=== PATIENT | female | born 1985 | race Caucasian/White ===

== ENCOUNTER → 2017-07-10 | Outpatient (REF) | payer BC | LOC: M SFHCLERA 09:50 | PROVIDERS: ATTEND Nurse Practitioner Family | DX: R30.0 Dysuria (principal) ==

== ENCOUNTER 2017-08-09 14:53 | Emergency (ER) | payer BC ==
[~2017-08-09] VITALS: Ht 160 cm; Wt 113.6 kg
[2017-08-09 14:54] VITALS: BP 140/86
== END 2017-08-09 15:44 | disposition left against medical advice (07) ==
LOC: M ED 14:53
DX: H93.90 Unspecified disorder of ear, unspecified ear (principal); Z53.29 Procedure and treatment not carried out because of patient's decision for other reasons

== ENCOUNTER → 2018-03-01 | Outpatient (REF) | payer BC | LOC: M SFHCLERA 12:09 | DX: L50.9 Urticaria, unspecified (principal) ==

== ENCOUNTER → 2018-04-30 | Outpatient (CLI) | payer BC ==
[2018-04-30 19:51] LABS: RHEUMATOID FACTOR QUANT < 10.0 IU/ML (<15.0)
[2018-05-01 09:07] LABS: THYROGLOBULIN ANTIBODY 34.9 U/ML (<60.0)
[2018-05-01 09:07] LABS: THYROID PEROXIDASE ANTIBODY < 28.0 U/ML (<60.0)
[2018-05-07 00:07] LABS: IGE RECEPTOR ABY 1 38.3 (<10)
== END ==
LOC: M SMT 14:02
DX: L50.1 Idiopathic urticaria (principal)
CPT/HCPCS: 86800

== ENCOUNTER → 2018-05-24 | Outpatient (CLI) | payer BC ==
[2018-05-24 17:10] LABS: ALBUMIN 3.4 GM/DL (3.2-5.2); ALKALINE PHOSPHATASE 85 U/L (45-117); ALT/SGPT 19 U/L (12-78); ANION GAP 6 MEQ/L (8-16); AST/SGOT 7 U/L (7-37); BILIRUBIN,TOTAL 0.1 MG/DL (0.2-1.0); BLOOD UREA NITROGEN 12 MG/DL (7-18); CALCIUM LEVEL 8.6 MG/DL (8.5-10.1); CARBON DIOXIDE LEVEL 28 MEQ/L (21-32); CHLORIDE LEVEL 107 MEQ/L (98-107); CREATININE FOR GFR 0.69 MG/DL (0.55-1.30); GLOMERULAR FILTRATION RATE > 60.0 (>60); GLUCOSE, FASTING 95 MG/DL (70-100); POTASSIUM SERUM 4.2 MEQ/L (3.5-5.1); SODIUM LEVEL 141 MEQ/L (136-145); TOTAL PROTEIN 6.8 GM/DL (6.4-8.2)
[2018-05-24 17:21] LABS: HEMATOCRIT 41.4 % (36.0-47.0); HEMOGLOBIN 13.1 g/dl (12.0-15.5); MEAN CORPUSCULAR HEMOGLOBIN 28.5 pg (27.0-33.0); MEAN CORPUSCULAR HGB CONC 31.6 g/dl (32.0-36.5); MEAN CORPUSCULAR VOLUME 90.2 fl (80.0-96.0); PLATELET COUNT, AUTOMATED 341 10^3/uL (150-450); RED BLOOD COUNT 4.59 10^6/uL (4.00-5.40); RED CELL DISTRIBUTION WIDTH 12.5 % (11.5-14.5); WHITE BLOOD COUNT 10.7 10^3/uL (4.0-10.0)
[2018-05-24 20:25] LABS: ERYTHROCYTE SEDIMENTATION RATE 12 mm/hr (0-20)
[2018-05-28 00:07] LABS: CYCLIC CITRULLINATED PEPTIDE 5 units (0-19)
[2018-05-28 00:07] LABS: ANTINUCLEAR ANTIBODIES DIRECT Negative (Negative)
== END ==
LOC: M SMT 12:08
DX: L50.8 Other urticaria (principal)
CPT/HCPCS: 80053

== ENCOUNTER → 2019-05-20 | Outpatient (CLI) | payer BC ==
[2019-05-20 15:44] LABS: BASO % 0.1 % (0.0-1.0); EOS # 0.4 10^3/uL (0.0-0.50); EOS % 4.3 % (0.0-3.0); HEMATOCRIT 44.9 % (36.0-47.0); HEMOGLOBIN 14.3 g/dl (12.0-15.5); LYMPH # 3.4 10^3/uL (1.5-4.5); LYMPH % 34.2 % (24.0-44.0); MEAN CORPUSCULAR HEMOGLOBIN 28.5 pg (27.0-33.0); MEAN CORPUSCULAR HGB CONC 31.8 g/dl (32.0-36.5); MEAN CORPUSCULAR VOLUME 89.4 fl (80.0-96.0); MONO # 0.6 10^3/uL (0.0-0.8); NEUTROPHILS # 5.4 10^3/uL (1.8-7.7); NEUTROPHILS % 54.9 % (36.0-66.0); PLATELET COUNT, AUTOMATED 305 10^3/uL (150-450); RED BLOOD COUNT 5.02 10^6/uL (4.00-5.40); WHITE BLOOD COUNT 9.9 10^3/uL (4.0-10.0)
[2019-05-20 16:05] LABS: ERYTHROCYTE SEDIMENTATION RATE 10 mm/hr (0-20)
== END ==
LOC: M WUC 11:17
PROVIDERS: ATTEND Physician Assistant
DX: R22.31 Localized swelling, mass and lump, right upper limb (principal)

== ENCOUNTER 2023-06-05 15:36 | Emergency (ER) | payer BC, SELFPAY ==
[~2023-06-05] VITALS: Ht 160 cm; Wt 114.2 kg
[2023-06-05] MEDS ORDERED: HYDR-643 PO (15:50)
[2023-06-05] MEDS ORDERED: diphenhydrAMINE 50MG/ML VIAL IV ONE (16:05)
[2023-06-05] MEDS ORDERED: methylPREDNISolone 125MG 2ML VIAL IV ONE (16:05)
[2023-06-05 17:03] LABS: BASO # 0.1 10^3/uL (0.0-0.2); BASO % 0.4 % (0.0-1.0); EOS # 0.4 10^3/uL (0.0-0.5); EOS % 3.3 % (0.0-3.0); HEMATOCRIT 43.3 % (36.0-47.0); HEMOGLOBIN 13.9 g/dl (12.0-15.5); LYMPH % 24.4 % (24.0-44.0); MEAN CORPUSCULAR HEMOGLOBIN 29.4 pg (27.0-33.0); MEAN CORPUSCULAR HGB CONC 32.1 g/dl (32.0-36.5); MEAN CORPUSCULAR VOLUME 91.5 fl (80.0-96.0); MONO # 0.6 10^3/uL (0.0-0.8); MONO % 4.8 % (2.0-8.0); NEUTROPHILS # 8.1 10^3/uL (1.5-8.5); NEUTROPHILS % 66.3 % (36.0-66.0); PLATELET COUNT, AUTOMATED 309 10^3/uL (150-450); RED BLOOD COUNT 4.73 10^6/uL (4.00-5.40); WHITE BLOOD COUNT 12.2 10^3/uL (4.0-10.0)
[2023-06-05 17:28] LABS: ETHYL ALCOHOL (ETHANOL) < 0.003 % (0.000-0.010)
[2023-06-05 17:30] LABS: ALBUMIN 3.6 G/DL (3.2-5.2); ALKALINE PHOSPHATASE 104 U/L (46-116); ALT/SGPT 17 U/L (7.0-40); AST/SGOT < 8 U/L (<34); BILIRUBIN,DIRECT 0.1 MG/DL (<0.4); BILIRUBIN,TOTAL 0.3 MG/DL (0.3-1.2); BLOOD UREA NITROGEN 12 MG/DL (9-23); CALCIUM LEVEL 9.2 MG/DL (8.5-10.1); CARBON DIOXIDE LEVEL 24 MMOL/L (20-31); CHLORIDE LEVEL 105 MMOL/L (98-107); CREATININE FOR GFR 0.66 MG/DL (0.55-1.30); GLOMERULAR FILTRATION RATE > 60.0 (>60); GLUCOSE, FASTING 85 MG/DL (60-100); POTASSIUM SERUM 3.9 MMOL/L (3.5-5.1); SODIUM LEVEL 139 MMOL/L (136-145); TOTAL PROTEIN 6.6 G/DL (5.7-8.2)
[2023-06-05] MEDS ORDERED: PRED10TA2 PO (17:39)
[2023-06-05] MEDS ORDERED: AMOX500C PO (17:39)
[2023-06-05 18:31] VITALS: BP 110/67; TEMP 97.7; O2SAT 96
== END 2023-06-05 18:33 | disposition home or self-care (01) ==
LOC: M ED 15:36
DX: J02.9 Acute pharyngitis, unspecified (principal); Z79.899 Other long term (current) drug therapy
CPT/HCPCS: 80048; 80076; 82077; 85025; 87880; 94760; 96374; 96375; 99284; J1200; J2930